=== PATIENT | male | born 1950 | race Caucasian/White ===

== ENCOUNTER 2018-03-06 23:14 | Emergency (ER) | payer MEDICARE ==
[2018-03-07 00:55] LABS: Hematocrit 41 % (42-52); Hemoglobin 13.9 g/dl (14.0-18.0); Mean Corpuscular HGB Conc 34 g/dl (31-36); Mean Corpuscular Hemoglobin 32 pg (27-31); Mean Corpuscular Volume 94 fL (80-94); Mean Platelet Volume 7.3 um3 (7.4-10.4); Platelet Count 226 10^3/ul (150-450); Red Blood Count 4.36 10^6/ul (4.00-5.40); Red Cell Distribution Width 14 % (10.5-15); White Blood Count 6.4 10^3/ul (3.5-10.8)
[2018-03-07 01:03] LABS: Eosinophil % 4.7 % (0-6); Lymphocyte % 45.3 % (25-47); Nucleated Red Blood Cells % 0.1
[2018-03-07 01:04] LABS: ABS Basophils 0.1 10^3/ul (0-0.2); ABS Eosinophils 0.3 10^3/ul (0-0.6); ABS Lymphocytes 3.1 10^3/ul (1.0-4.8); ABS Monocytes 0.5 10^3/ul (0-0.8); ABS Neutrophils 2.8 10^3/ul (1.5-7.7); ABS Nucleated RBC 0 10^3/ul
[2018-03-07 01:06] LABS: INR 1.05 (0.77-1.02)
[2018-03-07 02:05] VITALS: BP 119/83
--- NOTE | 2018-03-07 03:35 | ED ---
Nikolas Benjamin SooYoung, scribed for Mary Galvez MD on 03/07/18 at 0043 . Palpitations / Dysrhythmia - HPI Summary HPI Summary: A 67 y/o M presents to ED with c/o dysrhythmia onset [employer]PERVIS[employer] when he was going to bed. Pert PMHx: afib. Pt states he could feel the onset of afib and that it typically happens when he reclines. Last episode was two years ago, which lasted approx 12 hours. He takes Eliquis, Metoprolol. He did not take extra meds [employer]. His pulse at the time was 84 bpm which is much higher than his baseline of 40-50 bpm. PMHx: ulcerative colitis, HTN, HDL. Denies SHx. - History of Current Complaint Chief Complaint: EDDysrhythmPalp Time Seen by Provider: 03/07/18 00:13 Hx Obtained From: Patient Onset/Duration: Sudden Onset, Resolved Timing: Intermittent Episodes Lasting: Severity Currently: None Character: Fast Associated Signs & Symptoms: Negative - Allergy/Home Medications Allergies/Adverse Reactions: Allergies Allergy/AdvReac Type Severity Reaction Status Date / Time latex Allergy Rash Verified 03/06/18 23:22 Penicillins Allergy Unknown Verified 03/06/18 23:22 Reaction Details [facility] AdvReac See Comment Uncoded 03/11/16 16:13 PMH/Surg Hx/FS Hx/Imm Hx Previously Healthy: No Endocrine/Hematology History: Denies: Hx Diabetes Cardiovascular History: Reports: Hx Atrial Fibrillation, Hx Hypertension, Other Cardiovascular Problems/Disorders - ARRHYTHMIA IN PAST- RESOLVED SPONTANEOUSLY Denies: Hx Pacemaker/ICD Respiratory History: Reports: Other Respiratory Problems/Disorders - NASAL POLYPS Denies: Hx Sleep Apnea - RECENTLY TESTED GI History: Reports: Hx Gastroesophageal Reflux Disease, Other GI Disorders - ULCERATIVE COLITIS- CONTROLLED FOR PAST 2-3 YEARS History: Denies: Hx Renal Disease Sensory History: Reports: Hx Contacts or Glasses - GLASSES FOR READING Denies: Hx Hearing Aid Opthamlomology History: Reports: Hx Contacts or Glasses - GLASSES FOR READING Psychiatric History: Reports: Hx Anxiety - CONTROLLED WITH MED Denies: Hx Panic Disorder - Surgical History Surgery Procedure, Year, and Place: lt groin hernia 1971. Lt LONG FINGER & Rt RING FINGER - TRIGGER FINGER Hx Anesthesia Reactions: No Infectious Disease History: No Infectious Disease History: Denies: Traveled Outside the [place] in Last 30 Days - Family History Known Family History: Positive: Cardiac Disease, Hypertension - Social History Occupation: Employed Full-time Lives: With Family Alcohol Use: Occasionally Alcohol Amount: one time every 2 wks Hx Substance Use: No Substance Use Type: Reports: None Hx Tobacco Use: No Smoking Status (MU): Never Smoked Tobacco Review of Systems Negative: Fever Positive: Palpitations All Other Systems Reviewed And Are Negative: Yes Physical Exam - Summary Physical Exam Summary: GENERAL: Patient is a well-developed and nourished M who is lying comfortable in the stretcher. Patient is not in any acute respiratory distress. HEAD AND FACE: Normocephalic EYES: PERRLA, EOMI x 2. EARS: Hearing grossly intact. MOUTH: Oropharynx within normal limits. NECK: Supple, trachea is midline, no adenopathy, no JVD, no carotid bruit. CHEST: Symmetric, no tenderness at palpation LUNGS: Clear to auscultation bilaterally. No wheezing or crackles. CVS: Irregularly irregular, normal rate, S1 and S2 present, no murmurs or gallops appreciated. ABDOMEN: Soft, non-tender. Bowel sounds are normal. No abdominal abnormal pulsations. EXTREMITIES: Full ROM in all major joints, no edema, no cyanosis or clubbing. NEURO: Alert and oriented x 3. No acute neurological deficits. Speech is normal and follows commands. Triage Information Reviewed: Yes Vital Signs On Initial Exam: Initial Vitals Temp Pulse Resp BP Pulse Ox 98.1 F 66 20 140/87 95 03/06/18 23:18 03/06/18 23:18 03/06/18 23:18 03/06/18 23:18 03/06/18 23:18 Vital Signs Reviewed: Yes Diagnostics - Vital Signs Vital Signs Temp Pulse Resp BP Pulse Ox 03/06/18 23:18 98.1 F 66 20 140/87 95 - Laboratory Result Diagrams: 03/07/18 00:45 03/07/18 00:45 Lab Statement: Any lab studies that have been ordered have been reviewed, and results considered in the medical decision making process. - Radiology CXR Xray Interpretation: No Acute Changes - No PNA Radiology Interpretation Completed By: ED Physician - EKG 3729 EKG Rhythm: Atrial Fibrillation - 80 bpm EKG Comparison: No Significant Change - from 12/17/15 Re-Evaluation - Re-Evaluation 1 Re-Evaluation Time: 01:56 Change: Improved Comment: Discussing results with pt. Will D/C. Pt voiced understanding. Course/Dx - Course Course Of Treatment: A 67 y/o M presents to ED with c/o dysrhythmia onset [employer]PER[employer] when he was going to bed. Pert PMHx: afib. Pt states he could feel the onset of afib and that it typically happens when he reclines. Last episode was two years ago, which lasted approx 12 hours. He takes Eliquis, Metoprolol. He did not take extra meds [employer]. His pulse at the time was 84 bpm which is much higher than his baseline of 40-50 bpm. PMHx: ulcerative colitis, HTN, HDL. Denies SHx. Workup is unremarkable and pt is found to be in afib but rate controlled. 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 Pt is hemodynamically stable upon D/C. - Diagnoses Provider Diagnoses: Palpitations Discharge - Sign-Out/Discharge Documenting (check all that apply): Discharge/Admit/Transfer - D/C - Discharge Plan Condition: Stable Disposition: HOME Patient Education Materials: Heart Palpitations (ED) Referrals: Sean Maxwell DO [Primary Care Provider] - Additional Instructions: Please return to the ED if you experience new or worsening symptoms. The documentation as recorded by the Nikolas joshi SooYoung accurately reflects the service I personally performed and the decisions made by me, Mary Galvez MD.
--- NOTE | 2018-03-07 07:04 | RAD ---
INDICATION: Chest pain COMPARISON: None TECHNIQUE: An AP portable view obtained at 0058 hours is submitted. FINDINGS: Bones/Soft Tissues: There are no acute bony findings. Cardiomediastinal: The cardiomediastinal silhouette is normal. Lungs: There are no infiltrates. Pleura: There are no pleural effusions. Other: None IMPRESSION: NO ACTIVE DISEASE.
== END 2018-03-07 02:00 | disposition home or self-care (01) ==
LOC: ED 23:14
DX: R00.2 Palpitations (principal); I48.91 Unspecified atrial fibrillation; Z79.01 Long term (current) use of anticoagulants; I10 Essential (primary) hypertension; K21.9 Gastro-esophageal reflux disease without esophagitis; F41.9 Anxiety disorder, unspecified; Z88.0 Allergy status to penicillin; Z91.040 Latex allergy status; Z81.1 Family history of alcohol abuse and dependence; Z82.49 Family history of ischemic heart disease and other diseases of the circulatory system
CPT/HCPCS: 36415; 71045; 80053; 83605; 83735; 83880; 84436; 84443; 84484; 85025; 85610; 85730; 93005; 99283

== ENCOUNTER 2021-06-06 14:08 | Observation (INO) ==
[2021-06-06 14:48] LABS: ABS Basophils 0.1 10^3/ul (0-0.2); ABS Eosinophils 0.1 10^3/ul (0-0.6); ABS Lymphocytes 1.9 10^3/ul (1.0-4.8); ABS Monocytes 0.5 10^3/ul (0-0.8); ABS Neutrophils 3.2 10^3/ul (1.5-7.7); Eosinophil % 2.4 %; Hematocrit 43 % (42-52); Hemoglobin 14.8 g/dL (14.0-18.0); Lymphocyte % 32.5 %; Mean Corpuscular HGB Conc 34 g/dL (31-36); Mean Corpuscular Hemoglobin 32 pg (27-31); Mean Corpuscular Volume 94 fL (80-94); Mean Platelet Volume 7.7 fL (7.4-10.4); Platelet Count 288 10^3/uL (150-450); Red Cell Distribution Width 14 % (10-15); White Blood Count 5.9 10^3/uL (3.5-10.8)
[2021-06-06 14:59] LABS: INR 1.23 (0.86-1.15)
[2021-06-06 15:07] LABS: Albumin 4.3 g/dL (3.2-5.2); Calcium 10.3 mg/dL (8.6-10.3); EGFR Non-African American 90.1 (>60); Globulin 2.2 g/dL (2-4); Potassium 3.9 mmol/L (3.5-5.0); Total Bilirubin 0.5 mg/dL (0.2-1.0); Total Protein 6.5 g/dL (6.4-8.9)
[2021-06-06 15:08] LABS: Troponin I 0.02 ng/mL (<0.03)
[2021-06-06 16:15] LABS: Magnesium 1.9 mg/dL (1.9-2.7)
[2021-06-06 19:12] LABS: TSH Ultra Thyroid Stim Horm 2.37 mcIU/mL (0.34-5.60)
[2021-06-06 19:14] LABS: Free T4 0.76 ng/dL (0.61-1.12)
[2021-06-06 19:51] LABS: Rapid COVID-19 Molecular Undetected (Undetected)
[2021-06-07] MEDS ORDERED: Lisinopril/HCTZ 20/12.5 TB(NF) PO SCH (09:00)
[2021-06-07] MEDS ORDERED: Cholecalciferol (VIT D3) 1,000 unit TAB PO SCH (09:00)
[2021-06-07 15:42] VITALS: BP 143/80
[2021-06-07] MEDS ORDERED: Regadenoson 0.4 MG/5 ML SYRINGE ONE (15:50)
[2021-06-07] MEDS ORDERED: Metoprolol Tartrate 5 mg VIAL 5 ml VIAL (1 mg/ml) ONE (15:51)
== END 2021-06-07 16:45 | disposition home or self-care (01) ==
LOC: ED 14:08 → MEDTELE 14:08 → SUATTDRO 17:32 → MEDTELE 20:30
PROVIDERS: ADMIT Internal Medicine; ATTEND Internal Medicine